=== PATIENT | female | born 1960 | race Asian ===

== ENCOUNTER 2017-12-19 13:43 | Emergency (ER) | payer MEDICAID ==
[~2017-12-19] VITALS: Ht 160 cm; Wt 64.0 kg
[2017-12-19 13:50] VITALS: BP 100/63
== END 2017-12-19 14:36 | disposition home or self-care (01) ==
LOC: ER 13:43
DX: S81.012D Laceration without foreign body, left knee, subsequent encounter (principal); X58.XXXD Exposure to other specified factors, subsequent encounter